=== PATIENT | male | born 1980 | race Caucasian/White ===

== ENCOUNTER 2021-07-22 03:46 | Emergency (ER) | payer OTHER ==
[~2021-07-22] VITALS: Ht 175.3 cm; Wt 81.6 kg
--- NOTE | 2021-07-22 04:00 | NUR ---
Dr. Taylor at bedside for MSE.
[2021-07-22] MEDS ORDERED: KETOROLAC TROMETHAMINE 30 MG INJ ONE (04:15)
[2021-07-22] MEDS ORDERED: MORPHINE SULFATE 4 MG/1 ML DISP.SYRIN IV ONE (04:15)
[2021-07-22] MEDS ORDERED: IV NS 1000 ML 1,000 ML IV ONE ×2 (04:15→05:30)
[2021-07-22] MEDS ORDERED: KETOROLAC TROMETHAMINE 30 MG INJ IVP ONE (04:15)
[2021-07-22] MEDS ORDERED: MORPHINE SULFATE 4 MG/1 ML DISP.SYRIN ONE (04:15)
[2021-07-22] MEDS ORDERED: ONDANSETRON 4 MG/2 ML VIAL ONE (04:16)
--- NOTE | 2021-07-22 04:21 | NUR ---
Pt out of ER for CT.
[2021-07-22 04:26] LABS: MEAN CORPUSCULAR HEMOGLOBIN 30.9 uug (23.8-33.4); MEAN CORPUSCULAR VOLUME 90.5 fL (73.0-96.2); PLATELET COUNT (AUTO) 311 K/uL (152-348)
[2021-07-22] MEDS ORDERED: ONDANSETRON 4 MG/2 ML VIAL IV ONE (04:30)
[2021-07-22 04:37] LABS: BILIRUBIN,DIRECT 0.1 mg/dL (0.0-0.2); BILIRUBIN,TOTAL 0.9 mg/dL (0.2-1.0); CREATININE 1.2 mg/dL (0.6-1.3); POTASSIUM 4.3 mmol/L (3.5-5.1); TOTAL PROTEIN, SERUM 8.4 g/dL (6.4-8.2)
--- NOTE | 2021-07-22 05:00 | NUR ---
pt. comfortable, resting with eyes close and denies pain.
--- NOTE | 2021-07-22 05:13 | NUR ---
pts girlfriend giles, called for update. information provided.
[2021-07-22] MEDS ORDERED: ONDA4TAB11 PO (05:31)
--- NOTE | 2021-07-22 05:37 | NUR ---
contacted gf, and she will be here in 15mins to pick him up.
--- NOTE | 2021-07-22 06:20 | NUR ---
Patient discharged to home in stable condition. Written and verbal after care instructions given. Patient verbalizes understanding of instructions. Stressed follow up or return to ER for worsening s/s. pt. was escorted via wheelchair and picked up by his gf.
[2021-07-22 06:22] VITALS: BP 117/74
== END 2021-07-22 06:23 | disposition home or self-care (01) ==
LOC: ER 03:57
DX: R10.9 Unspecified abdominal pain (principal); R11.10 Vomiting, unspecified; R00.0 Tachycardia, unspecified; D72.829 Elevated white blood cell count, unspecified
CPT/HCPCS: 74176; 80048; 80076; 83690; 85025; 93005; 96361; 96374; 96375; 99285; J1885; J2270; J2405; J7040; A4663